=== PATIENT | female | born 1990 | race Caucasian/White ===

== ENCOUNTER 2017-07-28 15:23 | Emergency (ER) | payer BC, MEDICAID ==
[~2017-07-28] VITALS: Ht 157.5 cm; Wt 66.5 kg
[~2017-07-28 15:23] MED LIST: IBUP-1542 PO; PREN1TAB49 PO
[2017-07-28 15:27] VITALS: Ht 157.5 cm; Wt 66.5 kg
[2017-07-28] MEDS ORDERED: CARB15DR50 LEFT EAR (17:25)
--- NOTE | 2017-07-28 17:39 | ERD ---
ER Documentation Chief Complaint Chief Complaint left ear pain x 2 weeks getting worse HPI 26-year-old female presents with left-sided inner ear pain that is achy over the last 2 weeks getting worse and she has difficulty hearing with this. She has not had any otorrhea or discharge or fevers or chills and denies URI symptoms. ROS All systems reviewed and are negative except as per history of present illness. Medications Home Meds Active Scripts Carbamide Peroxide* (Debrox*) 6.5% - 15 Ml Drops, 10 DROP LEFT EAR BID, #1 BOTTLE Prov:KIRSTEN MARIE PA-C 07/28/17 Ibuprofen* (Ibuprofen*) 600 Mg Tab, 600 MG PO Q6, #20 TAB 0 Refills Prov:HA DUDLEY MD 12/23/15 Reported Medications Vits W-Ca,Fe,Fa(<1MG) () 1 Tab Tablet, 1 TAB PO DAILY 06/25/12 Allergies Allergies: Coded Allergies: No Known Allergies (Verified Allergy, Unknown, 12/23/15) PMhx/Soc Medical and Surgical Hx: pt denies Medical Hx, pt denies Surgical Hx Physical Exam Vitals Vital Signs Date Time Temp Pulse Resp B/P Pulse Ox O2 Delivery O2 Flow Rate FiO2 07/28/17 15:27 98.2 82 18 116/65 97 Physical Exam General: Well-developed, well-nourished. The patient appears in no acute distress. HEENT: Head is normocephalic, atraumatic. No scleral icterus. Right TM is normal, left ear is occluded with cerumen impaction. There is no pain with tragus/pinna manipulation. No Otorrhea or discharge, no mastoid tenderness. Neck: Supple. Nontender. Lungs: Clear to auscultation. Normal air movement. Heart: Regular rate and rhythm. S1 and S2 are normal. No murmurs, gallops, or rubs. Abdomen: Nondistended. Extremities: No clubbing or cyanosis. Moving extremities x 4. No weakness. Neurologic: Alert and oriented 3. No focal deficits. Normal speech and gait. Skin: Normal turgor. No rash or lesions. Procedures/MDM 26-year-old female had ear irrigation of the left ear to remove cerumen impaction. Cerumen was removed entirely with irrigation with peroxide. Patient states that her symptoms were alleviated including the hearing difficulty and pain. Repeat examination shows a normal tympanic membrane without signs of infection, no signs of otitis externa, mastoiditis. Departure Diagnosis: Primary Impression: Cerumen impaction Condition: Good Patient Instructions: Cerumen Impaction, Home Care KIRSTEN MARIE PA-C Jul 28, 2017 17:39
== END 2017-07-28 19:06 | disposition home or self-care (01) ==
LOC: FTE 15:23
DX: H61.22 Impacted cerumen, left ear (principal)
CPT/HCPCS: 69209; Z7502

== ENCOUNTER 2018-04-18 13:32 | Emergency (ER) | END 2018-04-18 16:30 | disposition home or self-care (01) ==